=== PATIENT | female | born 1980 | race Two or more races ===

== ENCOUNTER → 2024-05-19 | Outpatient (CLI) | payer MEDICAID, SELFPAY ==
--- NOTE | 2024-05-19 14:45 | XR_ITS ---
Examination: Screening digital mammography, bilateral Computer aided detection 3-D breast Tomosynthesis, bilateral Date and time of exam: May 19, 2024 1441 hours No priors Indication: Screening Technique: Nonmagnified MLO, CC views of the breasts to been obtained, reconstructed from 3-D Tomosynthesis images. R2 computer aided detection program utilized for evaluation of suspicious masses and/or abnormal calcifications. 3-D Tomosynthesis images obtained. Findings: The breasts are heterogeneously dense, which may obscure small masses Benign calcifications. No suspicious masses Impression: BI-RADS category II: Benign Findings. Recommend 1 year follow-up mammogram.
== END | disposition home or self-care (01) ==
PROVIDERS: Referring Provider Physician Assistant; Visit Provider Physician Assistant
DX: Z12.31 Encounter for screening mammogram for malignant neoplasm of breast (principal); R92.323 Mammographic fibroglandular density, bilateral breasts; R92.1 Mammographic calcification found on diagnostic imaging of breast
CPT/HCPCS: 77063; 77067

== ENCOUNTER → 2024-07-04 | Outpatient (CLI) | payer MEDICAID, SELFPAY ==
--- NOTE | 2024-07-04 13:30 | XR_ITS ---
Examination: Abdomen sonogram, complete Date and time of exam: July 04, 2024 1339 hours INDICATIONS: Abnormal liver function tests on laboratory examination performed 3 months ago. Technique: Multiple real-time grayscale transabdominal sonographic images of the abdomen have been obtained. Findings: Normal gallbladder Normal common bile duct 0.4 cm Pancreatic head 2.1 cm Aorta not enlarged Moderate hepatomegaly 18.7 cm fatty infiltration no focal liver lesions Normal hepatopedal portal venous flow Patent IVC Right kidney 12.0 x 5.1 x 6.1 cm cortex 1.1 cm Left kidney 12.9 x 6.0 x 4.7 cm renal cortex 2.1 cm Mild renal parenchymal scar formation No hydronephrosis Splenomegaly 13.7 cm IMPRESSION: Normal gallbladder Hepatosplenomegaly Fatty liver
== END | disposition home or self-care (01) ==
PROVIDERS: PCP Physician Assistant; Referring Provider Physician Assistant; Visit Provider Physician Assistant
DX: R16.2 Hepatomegaly with splenomegaly, not elsewhere classified (principal); K76.0 Fatty (change of) liver, not elsewhere classified
CPT/HCPCS: 76700

== ENCOUNTER 2024-07-10 07:55 | Emergency (ER) | payer MEDICAID, SELFPAY ==
[2024-07-10 08:11] VITALS: BP 119/76; PULSE 120; RESP 16; TEMP 37.2; O2SAT 95; BMI 34.6
--- NOTE | 2024-07-10 08:26 | XR_ITS ---
Examination: PA lateral chest 2 views Technique: Upright PA lateral chest 2 views Exam date and time: July 10, 2024 at 0840 hrs. Indications: Coughing fever today. Findings: Mild basilar bronchitis pattern No lobar pneumonia Heart is normal in size Impression: Mild basilar bronchitis pattern
--- NOTE | 2024-07-10 08:34 | PC.NURSE ---
GIVEN WATER TO DRINK PER PROVIDER REQUEST
--- NOTE | 2024-07-10 08:42 | PD.EDURI ---
Upper Respiratory Inf. RME/HPI General Chief Complaint: Flu Like Symptoms Stated Complaint: FLU SYMPTOMS x 3 DAYS Time Seen by Provider: 07/10/24 08:11 Source: patient Arrival date/time: 07/10/24 07:55 44-year-old female who presents to the emergency department with complaints of flulike symptoms, body aches, mucus, cough fever x 2 days. Positive sick contacts at home. Reports has taken Tylenol 1 g at 7 AM. Denies chest pain, dyspnea, no lethargy. Mode of arrival: ambulatory Related Data Previous Rx's ?Medication ?Instructions ?Recorded hydrocodone 5 mg-acetaminophen 325 1 tab PO Q6H PRN pain #10 tabs 10/28/20 mg tablet ([place]) ondansetron 4 mg disintegrating 4 mg PO Q6H #10 tabs 04/25/20 tablet ondansetron 4 mg disintegrating 4 mg PO Q8H PRN nausea and 11/07/21 tablet vomiting #10 tabs acetaminophen 500 mg capsule 1,000 mg (2 x 500 mg) PO TID #30 08/08/23 caps fluticasone propionate 50 1 spray intranasal QDAY #16 grams 08/08/23 mcg/actuation nasal spray,suspension acetaminophen 325 mg tablet 650 mg (2 x 325 mg) PO Q6H PRN 07/10/24 (Tylenol) fever or pain #30 tabs albuterol sulfate 90 mcg/actuation 2 puff inhalation Q6H PRN 07/10/24 aerosol inhaler (Ventolin HFA) shortness of breath or wheezing #8.5 grams oseltamivir 75 mg capsule (Tamiflu) 75 mg PO BID 5 days #10 caps 07/10/24 Allergies Allergy/AdvReac Type Severity Reaction Status Date / Time aspirin Allergy Severe Chest Pain Verified 07/10/24 07:59 banana Allergy Severe itching Verified 07/10/24 07:59 ibuprofen Allergy Severe Swelling Verified 07/10/24 07:59 of Lip/Tongue/Throat Review of Systems Review of Systems Systems Reviewed: All systems reviewed, normal except as documented Narrative Review of Systems: Gen: +fever, no chills, no weight loss, + body aches EYES: No discharge, no visual changes, no pain HEENT: No ear pain, no congestion, no sore throat PULM: No shortness of breath, no cough, no congestion CV: No chest pain, no dyspnea on exertion, no palpitations GI: No nausea, no vomiting, no diarrhea, no pain, no constipation : No frequency, no urgency,? no dysuria Musc/skel: No joint pain, no back pain Skin: No rash? ED Exam Narrative Physical exam: General: Sittiing in Exam table in no acute distress, answering questions appropriately HENT: normocephalic, atraumatic, EOMI, PERRLA, moist mucous membranes Chest: chest wall is nontender Cardiac: regular rate and rhythm, normal S1 and S2, no murmurs, rubs, or gallops, capillary refill ?2 seconds Pulmonary: clear to auscultation bilaterally, no wheezing, crackles, or rhonchi Abdominal: active bowel sounds, soft, nontender, nondistended Neuro: A&OX3, CN II-XII intact, sensation grossly intact bilaterally in UE and LE. Skin: no rashes, no ecchymosis Ext: no lower extremity edema Course Quality Measures none Orders Category Date Time Status Bedside COVID-19 Antigen Test NOW Care 07/10/24 08:11 Completed Bedside Influenza A&B Antigen Test NOW Care 07/10/24 08:11 Completed XR chest 2V Stat Exams 07/10/24 08:26 Completed Vital Signs Vital signs: Vital Signs Temperature 99.0 F 07/10/24 08:11 Pulse Rate 120 H 07/10/24 08:11 Respiratory Rate 16 07/10/24 08:11 Blood Pressure 119/76 07/10/24 08:11 Pulse Oximetry (%) 95 07/10/24 08:11 Oxygen Delivery Method Room Air 07/10/24 08:11 Upper Respiratory Infection MDM Narrative MDM Narrative:: Patient presents with symptoms and exam consistent with influenza. Tamiflu ordered to pharmacy. The patient is young, healthy, and is not a patient that is at high risk for developing influenza complications.? Patient is non-toxic appearing, appears to be well-hydrated and is breathing comfortably, without respiratory distress. Doubt pneumonia given lungs CTAB. Patient is appropriate for outpatient management with anti-pyretics and supportive care. Patient is comfortable with plan. Patient to follow up with PMD in 2 days. Strict return to ED precautions given. ?Patient verbalized understanding. Patient data External records reviewed:: [facility] previous records Clinical information provided by:: patient Social determinants that could affect healthcare access:: none Patient has the following chronic illnesses:: none How is presenting disease/condition affected by chronic disease/condition?: no chronic disease Evaluation data The following diagnostics were reviewed and interpreted by me:: radiology exam(s) Lab and/or radiology exams considered but not ordered:: none Interpretation Summary: Examination: PA lateral chest 2 views Technique: Upright PA lateral chest 2 views Exam date and time: July 10, 2024 at 0840 hrs. Indications: Coughing fever today. Findings: Mild basilar bronchitis pattern No lobar pneumonia Heart is normal in size Impression: Mild basilar bronchitis pattern Medications / Prescriptions Medications or Prescriptions considered but not ordered:: none Medication administrations:: none Consultations Consultation(s) initiated? (list below): No Diagnosis Upper Respiratory Differential Diagnosis: influenza Most likely diagnosis given after review of the tests above:: Influenza A Admission Indicated Admission indicated?: not indicated Explain why admission is indicated or not indicated:: none Admission Request Was there a request for admission?: No Disposition Plan Disposition Plan: Discharge Discharge Attestation Discharge Attestation: The patient and all family members were given an opportunity to ask questions and understood the discharge instructions. Discharge instructions specifically effects, indications for sooner follow up or return to the emergency department, and the expected course of current diagnosis. Patient condition: Stable Discharge Plan Plan Patient Disposition: HOME (Self Care) Patient condition on transfer: Stable Prescriptions/Referrals Prescriptions/Med Rec: New acetaminophen [Tylenol] 325 mg tablet 650 mg PO Q6H PRN (Reason: fever or pain) Qty: 30 0RF oseltamivir [Tamiflu] 75 mg capsule 75 mg PO BID 5 Days Qty: 10 0RF albuterol sulfate [Ventolin HFA] 90 mcg/actuation HFA aerosol inhaler 2 puff inhalation Q6H PRN (Reason: shortness of breath or wheezing) Qty: 8.5 0RF No Action ondansetron 4 mg tablet,disintegrating 4 mg PO Q8H PRN (Reason: nausea and vomiting) Qty: 10 0RF hydrocodone-acetaminophen [[place]] 5-325 mg tablet 1 tab PO Q6H MDD 4 PRN (Reason: pain) Qty: 10 0RF ondansetron 4 mg tablet,disintegrating 4 mg PO Q6H Qty: 10 0RF fluticasone propionate 50 mcg/actuation spray,suspension 1 spray intranasal QDAY Qty: 16 0RF Rx Instructions: administer into each nostril acetaminophen 500 mg capsule 1,000 mg PO TID Qty: 30 0RF Referrals: Nicol York PA-C [Primary Care Provider] - In 1 week Problem List Clinical Impression: Influenza A Patient/Caregiver Discharge Instructions Discharge Activity: activity as tolerated Education Materials: ED Influenza (Adult) Additional Instructions: Your rapid influenza test was positive. Start Tamiflu, antipyretics to pharmacy. Advised to increase hydration, warm tea and chicken rice soup can tapper helper for throat pain. Please follow-up with your clinic 3-day follow-up. If you develop any type of respiratory distress or change in condition please go immediately to nearest emergency department Print Language: Chinese Stand Alone Forms: Andree Award Info., Work/School Release, Patient Portal Info Letter PA/XAVI Supervising Physician PA/XAVI Supervising Physician: Dr. Ervin
[2024-07-10 09:16] VITALS: PULSE 111; O2SAT 99
== END 2024-07-10 09:40 | disposition home or self-care (01) ==
PROVIDERS: Emergency Provider Emergency Medicine; PCP Physician Assistant
DX: J10.1 Influenza due to other identified influenza virus with other respiratory manifestations (principal)
CPT/HCPCS: 71046; 87400; 87811; 99283

== ENCOUNTER 2024-07-22 12:46 | Emergency (ER) | payer MEDICAID, SELFPAY ==
[2024-07-22 12:48] VITALS: BMI 36.0
[2024-07-22 13:23] VITALS: BP 117/84; PULSE 104; RESP 19; TEMP 36.8; O2SAT 98; BMI 36.2
--- NOTE | 2024-07-22 13:23 | PD.EDURI ---
Upper Respiratory Inf. RME/HPI General Chief Complaint: Flu Like Symptoms Stated Complaint: Persistant cough and pressure after flu Time Seen by Provider: 07/22/24 13:20 Arrival date/time: 07/22/24 12:46 RME / HPI RME / HPI Narrative: 44-year-old female patient with no significant medical history, came in for evaluation regarding worsening cough for 2 weeks. Worse during the night, associated with shortness of breath. Patient is worried he might be having pneumonia, patient denies her PCP appointment today. Denies any fever, denies any chest pain coughing. Was diagnosed with flu 2 weeks ago. Related Data Previous Rx's ?Medication ?Instructions ?Recorded hydrocodone 5 mg-acetaminophen 325 1 tab PO Q6H PRN pain #10 tabs 04/25/20 mg tablet ([place]) ondansetron 4 mg disintegrating 4 mg PO Q6H #10 tabs 04/25/20 tablet ondansetron 4 mg disintegrating 4 mg PO Q8H PRN nausea and 11/07/21 tablet vomiting #10 tabs acetaminophen 500 mg capsule 1,000 mg (2 x 500 mg) PO TID #30 08/08/23 caps fluticasone propionate 50 1 spray intranasal QDAY #16 grams 08/08/23 mcg/actuation nasal spray,suspension acetaminophen 325 mg tablet 650 mg (2 x 325 mg) PO Q6H PRN 07/10/24 (Tylenol) fever or pain #30 tabs albuterol sulfate 90 mcg/actuation 2 puff inhalation Q6H PRN 07/10/24 aerosol inhaler (Ventolin HFA) shortness of breath or wheezing #8.5 grams Allergies Allergy/AdvReac Type Severity Reaction Status Date / Time aspirin Allergy Severe Chest Pain Verified 07/10/24 07:59 banana Allergy Severe itching Verified 07/10/24 07:59 ibuprofen Allergy Severe Swelling Verified 07/10/24 07:59 of Lip/Tongue/Throat Review of Systems Review of Systems Narrative Review of Systems: Review of system reviewed and within normal limits except mentioned in HPI ED Exam Narrative Physical exam: VITAL SIGNS: Reviewed. GENERAL APPEARANCE: Alert and interactive, follows commands, no acute distress, HEAD AND FACE: Non-traumatic. ENT: PERRL, pink conjunctivitis, eyelid no trauma, Mucous membrane moist. NECK: Supple, nontender, no nuchal rigidity. CHEST: No tenderness, no crepitus, no paradoxical movement, no retractions. LUNGS: Clear, well ventilated, symmetric, no rales, no wheezing, no ronchi, no stridor, good breath sounds bilaterally. HEART: Regular rate, regular rhythm, no murmur, no gallops. ABDOMEN: Soft, positive bowel sounds, nondistended, no guarding, nontender, no rebound, no masses, RECTAL: Deferred. GENITAL: Deferred. NEUROLOGICAL: Gross motor function intact sensory function intact, Appropriate for age. MUSCULOSKELETAL: low back nontender, full range of motion. EXTREMITIES: Nontender, full range of motion. SKIN: Color pink, dry, no rash, no lacerations, no abrasions, no contusions. LYMPHATICS: Deferred. Course Quality Measures none Orders Category Date Time Status XR chest 2V Stat Exams 07/22/24 13:23 Ordered Vital Signs Vital signs: Vital Signs Temperature 98.2 F 07/22/24 13:23 Pulse Rate 104 H 07/22/24 13:23 Respiratory Rate 19 07/22/24 13:23 Blood Pressure 117/84 07/22/24 13:23 Pulse Oximetry (%) 98 07/22/24 13:23 Oxygen Delivery Method Room Air 07/22/24 13:23 Upper Respiratory Infection MDM Narrative MDM Narrative:: 44-year-old female patient with no significant medical history, came in for evaluation regarding worsening cough for 2 weeks. Worse during the night, associated with shortness of breath. Patient is worried he might be having pneumonia, patient denies her PCP appointment today. Denies any fever, denies any chest pain coughing. Was diagnosed with flu 2 weeks ago. Patient eloped from the emergency room Patient data External records reviewed:: None Clinical information provided by:: patient Social determinants that could affect healthcare access:: none Patient has the following chronic illnesses:: None How is presenting disease/condition affected by chronic disease/condition?: no chronic disease Evaluation data The following diagnostics were reviewed and interpreted by me:: radiology exam(s) Lab and/or radiology exams considered but not ordered:: None Interpretation Summary: Elopement Medications / Prescriptions Medications or Prescriptions considered but not ordered:: None Medication administrations:: None Consultations Consultation(s) initiated? (list below): No Diagnosis Upper Respiratory Differential Diagnosis: upper respiratory infection, viral infection and bronchitis Most likely diagnosis given after review of the tests above:: Cough Admission Indicated Admission indicated?: not indicated Explain why admission is indicated or not indicated:: None Admission Request Was there a request for admission?: No Disposition Plan Disposition Plan: other (specify) (Elopement) Discharge Plan Prescriptions/Referrals Prescriptions/Med Rec: No Action ondansetron 4 mg tablet,disintegrating 4 mg PO Q8H PRN (Reason: nausea and vomiting) Qty: 10 0RF hydrocodone-acetaminophen [[place]] 5-325 mg tablet 1 tab PO Q6H MDD 4 PRN (Reason: pain) Qty: 10 0RF ondansetron 4 mg tablet,disintegrating 4 mg PO Q6H Qty: 10 0RF fluticasone propionate 50 mcg/actuation spray,suspension 1 spray intranasal QDAY Qty: 16 0RF Rx Instructions: administer into each nostril acetaminophen 500 mg capsule 1,000 mg PO TID Qty: 30 0RF acetaminophen [Tylenol] 325 mg tablet 650 mg PO Q6H PRN (Reason: fever or pain) Qty: 30 0RF albuterol sulfate [Ventolin HFA] 90 mcg/actuation HFA aerosol inhaler 2 puff inhalation Q6H PRN (Reason: shortness of breath or wheezing) Qty: 8.5 0RF Referrals: No Primary/Family,Physician [Primary Care Provider] - In 1 week Problem List Clinical Impression: Cough Patient/Caregiver Discharge Instructions Print Language: Tamazight
--- NOTE | 2024-07-22 14:38 | PC.NURSE ---
Addendum entered by Eleanor Naranjo 07/22/24 15:18: called again, no answerx3 @ [id number] Addendum entered by Eleanor Naranjo 07/22/24 15:06: called again, no answerx2@1500 Original Note: called for pt from lobby/outside, no answerx1@ [id number]
== END 2024-07-22 15:21 | disposition left against medical advice (07) ==
PROVIDERS: Emergency Provider Emergency Medicine
DX: R05.9 Cough, unspecified (principal); Z53.29 Procedure and treatment not carried out because of patient's decision for other reasons
CPT/HCPCS: 99281

== ENCOUNTER → 2024-09-19 | Outpatient (CLI) | payer MEDICAID, SELFPAY ==
--- NOTE | 2024-09-19 09:30 | XR_ITS ---
Examination: Ultrasound liver elastography Exam date and time: September 19, 2024 0948 hours INDICATIONS: Diagnosis fatty liver several months ago TECHNIQUE AND FINDINGS: Sonographic images upright abdomen Liver 19.4 cm fatty infiltration Normal hepatopedal portal venous flow Patent hepatic veins Normal tissue stiffness average 1 m/s IMPRESSION: Moderate hepatomegaly, fatty liver Normal tissue stiffness average, 1 m/s
== END | disposition home or self-care (01) ==
PROVIDERS: PCP Physician Assistant; Referring Provider Physician Assistant; Visit Provider Physician Assistant
DX: K76.0 Fatty (change of) liver, not elsewhere classified (principal)
CPT/HCPCS: 76981

== ENCOUNTER 2024-11-08 17:44 | Emergency (ER) | payer MEDICAID, SELFPAY ==
[2024-11-08 18:55] VITALS: BP 121/81; PULSE 88; RESP 18; TEMP 36.7; O2SAT 99; BMI 36.8
--- NOTE | 2024-11-08 19:04 | PD.EDADULT ---
ED General RME/HPI General Chief complaint: Animal Bite Stated complaint: HOT SPIDER BITE LEFT BUTTOCK X 2 DAYS Time Seen by Provider: 11/08/24 18:53 Arrival date/time: 11/08/24 17:44 Left buttock spider bite HPI ongoing for the past 3 days denies any prior history of similar events no fever chills shortness of breath difficulty breathing Related Data Previous Rx's ?Medication ?Instructions ?Recorded hydrocodone 5 mg-acetaminophen 325 1 tab PO Q6H PRN pain #10 tabs 04/25/20 mg tablet ([place]) ondansetron 4 mg disintegrating 4 mg PO Q6H #10 tabs 04/25/20 tablet ondansetron 4 mg disintegrating 4 mg PO Q8H PRN nausea and 11/07/21 tablet vomiting #10 tabs acetaminophen 500 mg capsule 1,000 mg (2 x 500 mg) PO TID #30 08/08/23 caps fluticasone propionate 50 1 spray intranasal QDAY #16 grams 08/08/23 mcg/actuation nasal spray,suspension acetaminophen 325 mg tablet 650 mg (2 x 325 mg) PO Q6H PRN 07/10/24 (Tylenol) fever or pain #30 tabs albuterol sulfate 90 mcg/actuation 2 puff inhalation Q6H PRN 07/10/24 aerosol inhaler (Ventolin HFA) shortness of breath or wheezing #8.5 grams sulfamethoxazole 800 1 tab PO BID 7 days #14 tabs 11/08/24 mg-trimethoprim 160 mg tablet (Bactrim DS) Allergies Allergy/AdvReac Type Severity Reaction Status Date / Time aspirin Allergy Severe Chest Pain Verified 11/08/24 17:48 banana Allergy Severe itching Verified 11/08/24 17:48 ibuprofen Allergy Severe Swelling Verified 11/08/24 17:48 of Lip/Tongue/Throat Review of Systems Review of Systems Narrative Review of Systems: GEN: No fever, no chills, no weight loss EYES: No discharge, no visual changes, no pain HEENT: No ear pain, no congestion, no sore throat PULM: No shortness of breath, no cough, no congestion CV: No chest pain, no dyspnea on exertion, no palpitations GI: No nausea, no vomiting, no diarrhea, no pain, no constipation : No frequency, no urgency, no dysuria MUSC/SKEL: No joint pain, no back pain SKIN:+ Abscess no rash PSYCH: No hallucinations, no depression HEME/LYMPH: No easy bleeding or bruising tendencies NEURO: No weakness, no headache Past Medical History Past Medical History NEUROLOGIC: Negative Neurological Disorders or Seizures CARDIAC: Negative Cardiac Disorders or Congestive Heart Failure RESPIRATORY: Negative Chronic Obstructive Pulmonary Disease (COPD) GASTROINTESTINAL: Negative Gastrointestinal Disorders GENITOURINARY: Negative Genitourinary Disorders or Renal Disease REPRODUCTIVE: Positive Genital Herpes and Previous Pregnancies MUSCULOSKELETAL: Negative Musculoskeletal Disorders ENDOCRINE: Negative Endocrine Disorders, Diabetes Mellitus Type 1 or Diabetes Mellitus Type 2 HEMATOLOGIC: Negative Blood Disorders PSYCHO/SOCIAL: Positive Anxiety OTHER HISTORY: Positive Hospitalization, Blood Transfusions and Chicken Pox; Negative Autoimmune Disease, Blood Transfusion Reaction or Anesthesia Reactions Family History FAMILY HISTORY: Positive Family Cardiac Disorders; Negative Family Psychiatric Problems, Family Respiratory Disorders, Family Gastrointestinal Problems, Family Cancer, Family Surgery or Family Anesthesia Reaction Surgical History SURGICAL: Positive Abdominal Surgery, Tubal Ligation and Section Social History SMOKING STATUS: Never smoker SECOND HAND EXPOSURE: No SUBSTANCE USE: does not use ED Exam Narrative Physical exam: [General: Obese not in any acute distress Head normocephalic HEENT: Within acceptable limits Neck is supple nontender Chest equal chest rise nontender to palpation Respiratory: Clear to auscultation no wheezes crackles or rubs CV: Rate rhythm is regular no murmurs rubs or clicks Abdomen is distended secondary to body habitus soft nontender no masses positive bowel sounds all 4 quadrants Back: No CVA tenderness no spinous process tenderness from cervical spine thoracic and lumbar spine Skin: 2 cm abscess to the left buttock, surrounding erythema no streaks. Otherwise skin is intact no petechiae rash induration ulceration or crepitus Extremities: Moving all extremity against resistance cap refill less than 2 seconds neurosensory intact Neuro: Awake alert oriented x3 Glascow coma 15 no focal deficits] Course Quality Measures none Orders Category Date Time Status Lidocaine 1% 20 ml [Xylocaine 1% 20 ML] Med 11/08/24 19:03 Discontinued 20 ml INFL X1 ONE Vital Signs Vital signs: Vital Signs Temperature 98.1 F 11/08/24 18:55 Pulse Rate 88 11/08/24 18:55 Respiratory Rate 18 11/08/24 18:55 Blood Pressure 121/81 11/08/24 18:55 Pulse Oximetry (%) 99 05/13/25 18:55 Oxygen Delivery Method Room Air 11/08/24 18:55 Procedures -ED Procedure Comment I&D: Anesthesia 1% lidocaine with epinephrine 1 mL injected local site the site then is opened with a #11 scalpel small amount of exudate expressed without complication bulky dressing applied patient tolerated the procedure well. Discharge Plan Plan Patient Disposition: HOME (Self Care) Patient condition on transfer: Stable Prescriptions/Referrals Prescriptions/Med Rec: New sulfamethoxazole-trimethoprim [Bactrim DS] 800-160 mg tablet 1 tab PO BID 7 Days Qty: 14 0RF No Action ondansetron 4 mg tablet,disintegrating 4 mg PO Q8H PRN (Reason: nausea and vomiting) Qty: 10 0RF hydrocodone-acetaminophen [[place]] 5-325 mg tablet 1 tab PO Q6H MDD 4 PRN (Reason: pain) Qty: 10 0RF ondansetron 4 mg tablet,disintegrating 4 mg PO Q6H Qty: 10 0RF fluticasone propionate 50 mcg/actuation spray,suspension 1 spray intranasal QDAY Qty: 16 0RF Rx Instructions: administer into each nostril acetaminophen 500 mg capsule 1,000 mg PO TID Qty: 30 0RF acetaminophen [Tylenol] 325 mg tablet 650 mg PO Q6H PRN (Reason: fever or pain) Qty: 30 0RF albuterol sulfate [Ventolin HFA] 90 mcg/actuation HFA aerosol inhaler 2 puff inhalation Q6H PRN (Reason: shortness of breath or wheezing) Qty: 8.5 0RF Referrals: Laurent Connolly MD [Physician] - In 1 week No Primary/Family,Physician [Primary Care Provider] - In 1 week Problem List Clinical Impression: Abscess of buttock, right Patient/Caregiver Discharge Instructions Education Materials: ED Abscess Antibiotic ..., ED Abscess, Incision And Drainage Print Language: Kyrgyz Stand Alone Forms: Andree Award Info., Work/School Release, Patient Portal Info Letter ANALISA/XAVI Supervising Physician ANALISA/XAVI Supervising Physician: Feliciano Spivey ENP [facility] Medication Administration(s) Medication Administration History Discontinued Medications Lidocaine HCl (Lidocaine Hcl 1% 20 Ml Vial) 20 ml INFL X1 ONE Stop: 11/08/24 19:04 Last Admin: 11/08/24 19:39 Dose: 20 ml Documented By: VALERIANO Comments: administered by provider.
[2024-11-08] MEDS: LIDOCAINE HCL 1% 20 ML VIAL INFL (19:39)
== END 2024-11-08 19:49 | disposition home or self-care (01) ==
PROVIDERS: Emergency Provider Emergency Medicine
DX: L02.31 Cutaneous abscess of buttock (principal)
CPT/HCPCS: 10060; 99283; J3490

== ENCOUNTER 2024-11-16 12:54 | Emergency (ER) | payer OTHER, SELFPAY ==
[2024-11-16 13:07] VITALS: BP 125/52; PULSE 100; RESP 18; TEMP 37; O2SAT 98; BMI 35.7
--- NOTE | 2024-11-16 13:11 | PD.EDSKIN ---
ED Skin Abcess FB-RME/HPI General Chief complaint: Burn/Smoke Inhalation Stated complaint: RIGHT ARM BURN FROM WORK Time Seen by Provider: 11/16/24 12:58 Arrival date/time: 11/16/24 12:54 44-year-old female presents to the emergency department today for complaints of burn right forearm patient reports she was at work today and obtained a burn while closing the oven Limitations: no limitations Related Data Previous Rx's ?Medication ?Instructions ?Recorded hydrocodone 5 mg-acetaminophen 325 1 tab PO Q6H PRN pain #10 tabs 28/20 mg tablet ([place]) ondansetron 4 mg disintegrating 4 mg PO Q6H #10 tabs 04/25/20 tablet ondansetron 4 mg disintegrating 4 mg PO Q8H PRN nausea and 11/07/21 tablet vomiting #10 tabs acetaminophen 500 mg capsule 1,000 mg (2 x 500 mg) PO TID #30 08/08/23 caps fluticasone propionate 50 1 spray intranasal QDAY #16 grams 08/08/23 mcg/actuation nasal spray,suspension acetaminophen 325 mg tablet 650 mg (2 x 325 mg) PO Q6H PRN 07/10/24 (Tylenol) fever or pain #30 tabs albuterol sulfate 90 mcg/actuation 2 puff inhalation Q6H PRN 07/10/24 aerosol inhaler (Ventolin HFA) shortness of breath or wheezing #8.5 grams bacitracin 500 unit/gram topical 1 applic topical TID 7 days #28.4 11/16/24 ointment grams hydrocodone 5 mg-acetaminophen 325 1 tab PO BID PRN pain #10 tabs 11/16/24 mg tablet Allergies Allergy/AdvReac Type Severity Reaction Status Date / Time aspirin Allergy Severe Chest Pain Verified 11/16/24 12:56 banana Allergy Severe itching Verified 11/16/24 12:56 ibuprofen Allergy Severe Swelling Verified 11/16/24 12:56 of Lip/Tongue/Throat Review of Systems Review of Systems Systems Reviewed: All systems reviewed, normal except as documented Constitutional Constitutional: Reports system reviewed and no additional complaints, except as documented, Denies fever(s) and Denies headache(s) Eyes Eyes: Reports system reviewed and no additional complaints, except as documented and Denies blurry vision ENT Ears, Nose, Mouth, and Throat: Reports system reviewed and no additional complaints, except as documented, Denies headache(s), Denies nasal congestion and Denies nasal discharge Cardiovascular Cardiovascular: Reports system reviewed and no additional complaints, except as documented, Denies chest pain and Denies dyspnea Respiratory Respiratory: Reports system reviewed and no additional complaints, except as documented, Denies chest congestion, Denies cough and Denies dyspnea Gastrointestinal Gastrointestinal: Reports system reviewed and no additional complaints, except as documented and Denies abdominal pain Integumentary/Breasts Skin/Breast: Reports system reviewed and no additional complaints, except as documented, Denies rash and Reports other (Burn right forearm) Neurologic Neurologic: Reports system reviewed and no additional complaints, except as documented, Reports as per HPI and Denies headache(s) Past Medical History Past Medical History NEUROLOGIC: Negative Neurological Disorders or Seizures CARDIAC: Negative Cardiac Disorders or Congestive Heart Failure RESPIRATORY: Negative Chronic Obstructive Pulmonary Disease (COPD) GASTROINTESTINAL: Negative Gastrointestinal Disorders GENITOURINARY: Negative Genitourinary Disorders or Renal Disease REPRODUCTIVE: Positive Genital Herpes and Previous Pregnancies MUSCULOSKELETAL: Negative Musculoskeletal Disorders ENDOCRINE: Negative Endocrine Disorders, Diabetes Mellitus Type 1 or Diabetes Mellitus Type 2 HEMATOLOGIC: Negative Blood Disorders PSYCHO/SOCIAL: Positive Anxiety OTHER HISTORY: Positive Hospitalization, Blood Transfusions and Chicken Pox; Negative Autoimmune Disease, Blood Transfusion Reaction or Anesthesia Reactions Family History FAMILY HISTORY: Positive Family Cardiac Disorders; Negative Family Psychiatric Problems, Family Respiratory Disorders, Family Gastrointestinal Problems, Family Cancer, Family Surgery or Family Anesthesia Reaction Surgical History SURGICAL: Positive Abdominal Surgery, Tubal Ligation and Section Social History SMOKING STATUS: Never smoker SECOND HAND EXPOSURE: No SUBSTANCE USE: does not use ED Exam General Limitations: Present no limitations General appearance: Present alert and in no apparent distress Head Head exam: Present atraumatic Eye Eye exam: Present normal appearance, PERRL and EOMI ENT ENT exam: Present normal exam, normal oropharynx and mucous membranes moist Neck Neck exam: Present normal inspection, full ROM and trachea midline Chest Chest inspection: Present normal inspection and symmetric chest wall rise Respiratory Respiratory exam: Present normal lung sounds bilaterally Cardiovascular Cardiovascular exam: Present regular rate, normal rhythm and normal heart sounds Abdominal Exam Abdominal exam: Present soft and normal bowel sounds Extremities Exam Extremities exam: Present normal inspection and full ROM Back Exam Back exam: Present normal inspection and full ROM Neurological Exam Neurological exam: Present alert, oriented X3 and CN II-XII intact Psychiatric Psychiatric exam: Present normal affect and normal mood Skin Skin exam: Present warm, dry and other (Burn right forearm) Course Quality Measures none Orders Category Date Time Status Bacitracin Oint pkt Med 11/16/24 13:11 Discontinued 1 gm TOP X1 ONE HYDROcodone*/APAP 5/325 [[place] 5/325] Med 11/16/24 13:11 Discontinued 1 tab PO X1 ONE Vital Signs Vital signs: Vital Signs Temperature 98.6 F 11/16/24 13:07 Pulse Rate 100 11/16/24 13:07 Respiratory Rate 18 11/16/24 13:07 Blood Pressure 125/52 L 11/16/24 13:07 Pulse Oximetry (%) 98 11/16/24 13:07 Oxygen Delivery Method Room Air 11/16/24 13:07 O2 saturation 98% room air within normal limits Skin / Abscess / Foreign Body MDM Narrative MDM Narrative:: 44-year-old female presents to the emergency department today for complaints of burn right forearm patient reports she was at work today and obtained a burn while closing the oven On exam patient has burn to the right forearm the burn is not circumferential it is on the dorsal aspect of the right forearm. Burn measures approximately 4 cm x 6 cm. No blistering Workmen's Compensation papers completed Patient discharged home in no distress to follow-up with primary care doctor in the next 24 to 48 hours and for any worsening symptoms to return to the ER immediately Patient data External records reviewed:: [facility] previous records Clinical information provided by:: patient Social determinants that could affect healthcare access:: none Patient has the following chronic illnesses:: None How is presenting disease/condition affected by chronic disease/condition?: no chronic disease Evaluation data The following diagnostics were reviewed and interpreted by me:: other (specify) Lab and/or radiology exams considered but not ordered:: Considered not ordered Interpretation Summary: N/A Medications / Prescriptions Medications or Prescriptions considered but not ordered:: Given Medication administrations:: Medication Administration History Discontinued Medications Hydrocodone Bitart/Acetaminophen (Hydrocodone/[place] 5/325 Tablet) 1 tab PO X1 ONE Stop: 11/16/24 13:12 Last Admin: 11/16/24 13:27 Dose: 1 tab Documented By: Bacitracin (Bacitracin Oint 1 Gm Packet) 1 gm TOP X1 ONE Stop: 11/16/24 13:12 Last Admin: 11/16/24 13:34 Dose: 1 gm Documented By: Given Consultations Consultation(s) initiated? (list below): No Diagnosis Skin/Abscess Differential Diagnosis: abscess of skin or subcutaneous tissue and cellulitis Most likely diagnosis given after review of the tests above:: Burn Admission Indicated Admission indicated?: not indicated Admission Request Was there a request for admission?: No Disposition Plan Disposition Plan: Discharge Discharge Attestation Discharge Attestation: The patient and all family members were given an opportunity to ask questions and understood the discharge instructions. Discharge instructions specifically effects, indications for sooner follow up or return to the emergency department, and the expected course of current diagnosis. Patient condition: Stable Discharge Plan Plan Patient Disposition: HOME (Self Care) Discharge Disposition comment: Stable Prescriptions/Referrals Prescriptions/Med Rec: New bacitracin 500 unit/gram ointment 1 applic topical TID 7 Days Qty: 28.4 0RF hydrocodone-acetaminophen 5-325 mg tablet 1 tab PO BID MDD 10 PRN (Reason: pain) Qty: 10 0RF No Action ondansetron 4 mg tablet,disintegrating 4 mg PO Q8H PRN (Reason: nausea and vomiting) Qty: 10 0RF hydrocodone-acetaminophen [[place]] 5-325 mg tablet 1 tab PO Q6H MDD 4 PRN (Reason: pain) Qty: 10 0RF ondansetron 4 mg tablet,disintegrating 4 mg PO Q6H Qty: 10 0RF fluticasone propionate 50 mcg/actuation spray,suspension 1 spray intranasal QDAY Qty: 16 0RF Rx Instructions: administer into each nostril acetaminophen 500 mg capsule 1,000 mg PO TID Qty: 30 0RF acetaminophen [Tylenol] 325 mg tablet 650 mg PO Q6H PRN (Reason: fever or pain) Qty: 30 0RF albuterol sulfate [Ventolin HFA] 90 mcg/actuation HFA aerosol inhaler 2 puff inhalation Q6H PRN (Reason: shortness of breath or wheezing) Qty: 8.5 0RF Problem List Clinical Impression: Burn of forearm, right, Work related injury Patient/Caregiver Discharge Instructions Education Materials: ED Burn, Hot Water Additional Instructions: Please follow up with your primary care doctor in the next 24-48hrs for any worsening symptoms return here immediately Print Language: Swazi Stand Alone Forms: Andree Award Info., Patient Portal Info Letter PA/DRIVER LICENSE REVIEWING OFFICER Supervising Physician PA/DRIVER LICENSE REVIEWING OFFICER Supervising Physician: Dr murphy
[2024-11-16] MEDS: HYDROcodone/APAP 5/325 TABLET 1 TAB PO (13:27)
[2024-11-16] MEDS: BACITRACIN OINT 1 GM PACKET TOP (13:34)
== END 2024-11-16 13:56 | disposition home or self-care (01) ==
LOC: SERX 14:03
PROVIDERS: Emergency Provider Emergency Medicine
DX: T22.011A Burn of unspecified degree of right forearm, initial encounter (principal); X08.8XXA Exposure to other specified smoke, fire and flames, initial encounter; Y99.0 Civilian activity done for income or pay
CPT/HCPCS: 99283; A9270

== ENCOUNTER 2024-12-15 23:10 | Emergency (ER) | payer MEDICAID, SELFPAY ==
[2024-12-15 23:11] VITALS: BMI 36.8
[2024-12-16 00:39] VITALS: BP 128/83; PULSE 95; RESP 17; TEMP 36.6; O2SAT 98
--- NOTE | 2024-12-16 01:02 | XR_ITS ---
Examination: Abdomen sonogram, Limited Date and time of exam: December 16, 2024 0203 hours INDICATIONS: Right upper abdominal pain beginning 2 months ago Technique: Real-time dickson scale transabdominal sonographic images of the upper abdomen obtained. Findings: Normal gallbladder Normal common bile duct 0.3 cm Pancreatic head 2.5 cm Liver 18.6 cm fatty infiltration no focal liver lesions Normal hepatopedal portal venous flow Patent IVC IMPRESSION: Normal gallbladder Moderate hepatomegaly fatty infiltration
[2024-12-16 01:41] LABS: Basophils % (Auto) 1 % (0-2.5); Eosinophils # (Auto) 0.1 Thou/mm3 (0.0-0.5); Eosinophils % (Auto) 2 % (0-10); Hematocrit 38.1 % (36.0-46.0); Hemoglobin 13.3 g/dL (12.0-16.0); Immature Granulocytes % (Auto) 0 % (0-0); Lymphocytes # (Auto) 1.8 Thou/mm3 (1.0-4.8); Lymphocytes % (Auto) 29 % (10-50); Mean Corpuscular HGB Conc 34.9 g/dl (31.0-37.0); Mean Corpuscular Hemoglobin 30.6 pg (25.0-35.0); Mean Corpuscular Volume 88 fL (80-100); Monocytes # (Auto) 0.5 Thou/mm3 (0.0-0.8); Monocytes % (Auto) 8 % (0-12); Neutrophils # (Auto) 3.7 Thou/mm3 (1.8-7.7); Neutrophils % (Auto) 60 % (37-80); Nucleated Red Blood Cell % 0 /100 WBC (0); Platelet Count 231 Thou/mm3 (140-440); RDW Standard Deviation 41.3 fL (36.4-46.3); Red Blood Count 4.34 Miln/mm3 (4.00-5.20); White Blood Count 6.1 Thou/mm3 (3.6-11.0)
[2024-12-16 01:42] LABS: Collection Type, Urine Clean Catch
[2024-12-16 01:54] LABS: HCG Qualitative,Urine Negative
[2024-12-16 01:56] LABS: Bacteria,Urine Rare; Bilirubin,Urine Negative (Negative); Blood,Urine 3+ (Negative); Clarity,Urine Clear (Clear/Hazy); Color,Urine Amber (Lt Yel-Yel); Culture Indicated,Urine Not Indicated; Glucose, Urine Negative (Negative); Ketones,Urine Negative (Negative); Leukocyte Esterase,Urine Negative (Negative); Nitrite,Urine Negative (Negative); Protein,Urine 1+ (Neg - Trace); RBC,Urine 27 /hpf (0-3); Specific Gravity,Urine 1.032 (1.001-1.035); Squamous Epithelial Cell,Urine 5 /hpf (0-5); Urobilinogen,Urine Negative mg/dL (0.0-1.0); WBC,Urine 6 /hpf (0-5)
[2024-12-16 01:57] LABS: Alanine Aminotransferase 23 U/L (10-49); Albumin, Serum 4.2 gm/dL (3.5-5.0); Albumin/Globulin Ratio 1.6 (1.2-2.2); Alkaline Phosphatase 129 U/L (46-116); Anion Gap 9 (7-16); Aspartate Amino Transferase 27 U/L (0-34); BUN/Creatinine Ratio 15 Ratio (12-20); Bilirubin,Total 0.4 mg/dL (0.3-1.2); Blood Urea Nitrogen 9 mg/dL (9-23); Calcium 8.9 mg/dL (8.3-10.6); Calcium (Corrected) 8.9 mg/dL (8.5-10.1); Carbon Dioxide 27.4 mMol/L (20.0-31.0); Chloride 106 mMol/L (98-107); Creatinine (Component) 0.6 mg/dL (0.6-1.3); D-Dimer 522 ng/mL (<600); Estimated Creatinine Clearance 138.5 mL/min (>60); Globulin 2.6 gm/dL (2.3-3.5); Glucose 97 mg/dL (74-106); Lipase 39 U/L (12-53); Osmolality,Calculated 281 (275-295); Potassium 3.9 mMol/L (3.4-5.1); Sodium 142 mMol/L (136-145); Total Protein 6.8 gm/dL (5.7-8.2); Troponin I < 0.020 ng/mL (0.0-0.045); eGFR > 60 See Note
[2024-12-16 02:03] LABS: Amphetamine/Methamp Scrn,U Negative (Negative); Barbiturate Screen,Urine Negative (Negative); Benzodiazepines Screen,Urine Negative (Negative); Benzoylecgonine Screen, Ur Negative (Negative); Fentanyl Screen,Urine Negative (Negative); Opiate Screen,Urine Negative (Negative); THC Screen,Urine Negative (Negative)
--- NOTE | 2024-12-16 02:52 | PRELIM_ITS ---
Gallbladder ultrasound. December 16, 2024 at 0203 hours Clinical history: Right upper quadrant pain Comparison: No prior study is available for comparison. Findings: The visualized liver is enlarged measuring 18.6 cm and demonstrates increased echogenicity without mass or ductal dilatation. No gallbladder calculus, wall thickening or pericholecystic fluid is identified. The common duct is normal in caliber at 3 mm. No free fluid is demonstrated on the submitted images. Impression: Enlarged fatty liver. No evidence of Cholelithiasis, acute cholecystitis or biliary obstruction. Report Electronically Signed By: Rod Garcia 12/16/2024 2:51:56 AM [EST]
--- NOTE | 2024-12-16 03:28 | XR_ITS ---
Examination: PA lateral chest 2 views TECHNIQUE: Upright PA lateral chest 2 views Date and time: December 16, 2024 1533 hours Comparison July 10, 2024 INDICATIONS: Right-sided chest pain shortness of breath beginning 2 weeks ago. FINDINGS: Normal heart size No lobar pneumonia or pulmonary edema Mild osteopenia IMPRESSION: No pneumonia or pulmonary edema
--- NOTE | 2024-12-16 05:13 | PRELIM_ITS ---
Radiographs of the chest (2 views). December 16, 2024 at 0332 hours Clinical history: Right side pain. Comparison: No prior study is available for comparison. Findings: The lungs are clear. There is no evidence of pleural effusion or pneumothorax. The cardiomediastinal silhouette is normal. The bones are unremarkable for age. Impression: Normal chest. Report Electronically Signed By: Mendel Nuno 12/16/2024 5:13:12 AM [EST]
[2024-12-16 05:24] VITALS: RESP 18
--- NOTE | 2024-12-16 05:31 | EDNOTE_ITS ---
ED Abdominal Pain RME/HPI General Chief Complaint: General Adult/Misc Complain Stated complaint: RIGHT SIDE PAIN Time seen by provider: 12/16/24 00:56 Arrival date/time: 12/15/24 23:10 44F with history of anxiety presents to ED with 2.5 weeks of intermittent RUQ/R lower chest pain. Patient denies URI symptoms, fall/trauma, and SOB. Limitations: no limitations Related Data Previous Rx's ?Medication ?Instructions ?Recorded hydrocodone 5 mg-acetaminophen 325 1 tab PO Q6H PRN pa in #10 tabs 04/25/ mg tablet ([place]) ondansetron 4 mg disintegrating 4 mg PO Q6H #10 tabs 1 tablet ondansetron 4 mg disintegrating 4 mg PO Q8H PRN nausea and 11/07/21 tablet vomiting #10 tabs acetaminophen 500 mg capsule 1,000 mg (2 x 500 mg) PO TID #30 08/08/23 caps fluticasone propionate 50 1 spray intranasal QDAY #16 grams 08/08/23 mcg/actuation nasal spray,suspension acetaminophen 325 mg tablet 650 mg (2 x 325 mg) PO Q6H PRN 07/10/24 (Tylenol) fever or pain #30 tabs albuterol sulfate 90 mcg/actuation 2 puff inhalation Q 6H PRN 07/10/24 aerosol inhaler (Ventolin HFA) shortness of breath or wheezing #8.5 grams hydrocodone 5 mg-acetaminophen 325 1 tab PO BID PRN pa in #10 tabs 11/16/24 mg tablet Allergies Allergy/AdvReac Type Severity Reaction Status Date / Time aspirin Allergy Severe Chest Pain Verified 12/15/24 23:13 banana Allergy Severe itching Verified 12/15/24 23:13 ibuprofen Allergy Severe Swelling Verified 12/15/24 23:13 of Lip/Tongue/Throat Review of Systems Review of Systems Systems Reviewed: All systems reviewed, normal except as documented Constitutional Constitutional: Reports system reviewed and no additional complaints, except as documented, Denies fever(s) and Denies headache(s) ENT Ears, Nose, Mouth, and Throat: Denies disequilibrium and Denies headache(s) Cardiovascular Cardiovascular: Reports system reviewed and no additional complaints, except as documented, Reports as per HPI, Reports chest pain and Denies dyspnea Respiratory Respiratory: Reports system reviewed and no additional complaints, except as documented, Denies cough and Denies dyspnea Gastrointestinal Gastrointestinal: Reports system reviewed and no additional complaints, except as documented, Reports as per HPI, Reports abdominal pain, Denies nausea and Denies vomiting Neurologic Neurologic: Reports system reviewed and no additional complaints, except as documented, Denies confusion, Denies disequilibrium and Denies headache(s) Psychiatric Psychiatric: Denies confusion Past Medical History Past Medical History NEUROLOGIC: Negative Neurological Disorders or Seizures CARDIAC: Negative Cardiac Disorders or Congestive Heart Failure RESPIRATORY: Negative Chronic Obstructive Pulmonary Disease (COPD) GASTROINTESTINAL: Negative Gastrointestinal Disorders GENITOURINARY: Negative Genitourinary Disorders or Renal Disease REPRODUCTIVE: Positive Genital Herpes and Previous Pregnancies MUSCULOSKELETAL: Negative Musculoskeletal Disorders ENDOCRINE: Negative Endocrine Disorders, Diabetes Mellitus Type 1 or Diabetes Mellitus Type 2 HEMATOLOGIC: Negative Blood Disorders PSYCHO/SOCIAL: Positive Anxiety OTHER HISTORY: Positive Hospitalization, Blood Transfusions and Chicken Pox; Negative Autoimmune Disease, Blood Transfusion Reaction or Anesthesia Reactions Family History FAMILY HISTORY: Positive Family Cardiac Disorders; Negative Family Psychiatric Problems, Family Respiratory Disorders, Family Mariel rointestinal Problems, Family Cancer, Family Surgery or Family Anesthesia Reaction Surgical History SURGICAL: Positive Abdominal Surgery, Tubal Ligation and Section Social History SMOKING STATUS: Never smoker SECOND HAND EXPOSURE: No SUBSTANCE USE: does not use ED Exam General Limitations: Present no limitations General appearance: Present alert and in no apparent distress Head Head exam: Present atraumatic Eye Eye exam: Present normal appearance, PERRL and EOMI ENT ENT exam: Present normal exam, normal oropharynx and mucous membranes moist Neck Neck exam: Present normal inspection, full ROM and trachea midline Chest Chest inspection: Present symmetric chest wall rise and tenderness (R lower rib focal) Respiratory Respiratory exam: Present normal lung sounds bilaterally Cardiovascular Cardiovascular exam: Present regular rate, normal rhythm and normal heart sounds Abdominal Exam Abdominal exam: Present soft and normal bowel sounds Extremities Exam Extremities exam: Present normal inspection and full ROM Back Exam Back exam: Present normal inspection and full ROM Neurological Exam Neurological exam: Present alert, oriented X3 and CN II-XII intact Psychiatric Psychiatric exam: Present normal affect and normal mood Skin Skin exam: Present warm, dry, intact and normal color Course Quality Measures none Orders Category Date Time Status US gall bladder Stat Exams 12/16/24 01:02 Taken XR chest 2V Stat Exams 12/16/24 03:28 Taken CBC Stat Lab 12/16/24 01:18 Completed CMP [Comprehensive Metabolic Panel] Stat Lab 12/16/24 01:18 Completed D-Dimer Stat Lab 12/16/24 01:18 Completed Drug Screen,Urine Stat Lab 12/16/24 01:29 Completed HCG Qualitative,Urine Stat Lab 12/16/24 01:29 Completed Lipase Stat Lab 12/16/24 01:18 Completed Troponin I Stat Lab 12/16/24 01:18 Completed Urinalysis, C/S if Indicated Stat Lab 12/16/24 01:29 Completed Vital Signs Vital signs: Vital Signs Temperature 97.8 F 12/16/24 00:39 Pulse Rate 95 12/16/24 00:39 Respiratory Rate 17 12/16/24 00:39 Blood Pressure 128/83 12/16/24 00:39 Pulse Oximetry (%) 98 12/16/24 00:39 Oxygen Delivery Method Room Air 12/16/24 00:39 O2 at 98% on RA and WNLs Abdominal Pain MDM MDM Narrative MDM Narrative:: 44F with history of anxiety presents to ED with 2.5 weeks of intermittent RUQ/R lower chest pain. Patient denies URI symptoms, fall/trauma, and SOB. Physical exam reveals point tenderness and R lower rib area. No RUQ tenderness. Clear lungs. Normal WOB. Patient is afebrile, calm, and alert. XR normal. US normal. No leukocytosis. CMP unremarkable. D-dimer and trop normal. Patient data External records reviewed:: [facility] previous records Clinical information provided by:: patient Social determinants that could affect healthcare access:: mental health Patient has the following chronic illnesses:: anxiety How is presenting disease/condition affected by chronic disease/condition?: exacerbated by Evaluation data The following diagnostics were reviewed and interpreted by me:: lab results and radiology exam(s) Lab and/or radiology exams considered but not ordered:: ordered Interpretation Summary: above Medications / Prescriptions Medications or Prescriptions considered but not ordered:: not ordered Medication administrations:: n/a Consultations Consultation(s) initiated? (list below): No Diagnosis Differential diagnosis abdominal pain: abdominal pain, acute appendicitis, calculus of kidney, constipation, diverticulitis, endometriosis, gastroenteritis, pancreatitis, small bowel obstruction and other (PE, costochondritis,) Most likely diagnosis given after review of the tests above:: costochondritis Admission Indicated Admission indicated?: not indicated Admission Request Was there a request for admission?: No Disposition Plan Disposition Plan: Discharge Discharge Attestation Discharge Attestation: The patient and all family members were given an opportunity to ask questions and understood the discharge instructions. Discharge instructions specifically effects, indications for sooner follow up or return to the emergency department, and the expected course of current diagnosis. Patient condition: Stable Discharge Plan Plan Patient Disposition: HOME (Self Care) Discharge Disposition comment: Stable Prescriptions/Referrals Prescriptions/Med Rec: No Action ondansetron 4 mg tablet,disintegrating 4 mg PO Q8H PRN (Reason: nausea and vomiting) Qty: 10 0RF hydrocodone-acetaminophen [[place]] 5-325 mg tablet 1 tab PO Q6H MDD 4 PRN (Reason: pain) Qty: 10 0RF ondansetron 4 mg tablet,disintegrating 4 mg PO Q6H Qty: 10 0RF fluticasone propionate 50 mcg/actuation spray,suspension 1 spray intranasal QDAY Qty: 16 0RF Rx Instructions: administer into each nostril acetaminophen 500 mg capsule 1,000 mg PO TID Qty: 30 0RF hydrocodone-acetaminophen 5-325 mg tablet 1 tab PO BID MDD 10 PRN (Reason: pain) Qty: 10 0RF acetaminophen [Tylenol] 325 mg tablet 650 mg PO Q6H PRN (Reason: fever or pain) Qty: 30 0RF albuterol sulfate [Ventolin HFA] 90 mcg/actuation HFA aerosol inhaler 2 puff inhalation Q6H PRN (Reason: shortness of breath or wheezing) Qty: 8.5 0RF Referrals: Nicol York PA-C [Primary Care Provider] - In 1 week Problem List Clinical Impression: Costochondritis Patient/Caregiver Discharge Instructions Education Materials: ED Chest Wall Pain, Costochondritis Additional Instructions: Please follow-up with PCP within 24-48 hours and return immediately if symptoms worsen. NSAIDs like ibuprofen tend to work better for this type of pain. Print Language: [place] Stand Alone Forms: Patient Portal Info Letter ANALISA/XAVI Supervising Physician ANALISA/XAVI Supervising Physician: Dr. Monroy
== END 2024-12-16 05:26 | disposition home or self-care (01) ==
PROVIDERS: Physician Assistant; Emergency Provider Emergency Medicine; PCP Physician Assistant
DX: M94.0 Chondrocostal junction syndrome [Tietze] (principal); R10.11 Right upper quadrant pain
CPT/HCPCS: 36415; 71046; 76705; 80053; 80307; 81001; 81025; 83690; 84484; 85025; 85379; 99284